=== PATIENT | female | born 1960 | race Caucasian/White ===

== ENCOUNTER → 2018-03-20 | Outpatient (CLI) | payer OTHER ==
--- NOTE | 2018-03-20 15:12 | RADIOLOGY IMAGING REPORT ---
[place] [facility] [place] ARQUEL WRIGHT : [id number] MR: [id number] V: [id number] EXAM DATE: ORDERING PHYSICIAN: SLIME ROSSI TECHNOLOGIST: Aparna Simpson PROCEDURE:BILATERAL DIGITAL SCREENING MAMMOGRAM WITH CAD ASSISTED INTERPRETATION & 3D TOMOSYNTHESIS COMPARISON:Prior mammograms 08/30/14, 08/25/12. INDICATIONS:SCREENING FINDINGS: Scattered fibroglandular densities are seen throughout the breasts. The parenchymal pattern has remained stable allowing for difference in mammographic technique & patient positioning. DIAGNOSTIC CATEGORY 1--NEGATIVE. RECOMMENDATIONS: ROUTINE MAMMOGRAM AND CLINICAL EVALUATION. IMPRESSION: BIRADS 1: Negative. No significant abnormality is seen. Dictated by: Ana Torres M.D. on 03/20/2018 at 14:28 Transcribed by: FELIPE on 03/20/2018 at 14:37 Approved by: Ana Torres M.D. on 03/20/2018 at 15:11 [facility]
== END ==
LOC: MAMO 01:48
PROVIDERS: ATTEND Nurse Practitioner Psychiatric/Mental Health
DX: Z12.31 Encounter for screening mammogram for malignant neoplasm of breast (principal)
CPT/HCPCS: 77063; 77067